=== PATIENT | male | born 1970 | race Caucasian/White ===

== ENCOUNTER 2019-02-09 22:26 | Emergency (ER) | payer SELFPAY ==
[2019-02-10] MEDS: KETOROLAC 60 MG INJ IM (04:25)
== END 2019-02-10 04:47 | disposition home or self-care (01) ==
LOC: FTE 22:26
DX: I86.1 Scrotal varices (principal); F17.210 Nicotine dependence, cigarettes, uncomplicated; I10 Essential (primary) hypertension; E11.9 Type 2 diabetes mellitus without complications; Z76.0 Encounter for issue of repeat prescription; Z79.4 Long term (current) use of insulin
CPT/HCPCS: 76870; 96372; 99285-25